=== PATIENT | male | born 1990 | race Caucasian/White ===

== ENCOUNTER 2024-03-11 12:00 | Emergency (ER) | payer MEDICAID ==
[~2024-03-11] VITALS: Ht 188 cm; Wt 75.0 kg
[2024-03-11 12:03] VITALS: BP 145/94; PULSE 89; RESP 18; TEMP 97.9; O2SAT 100
[2024-03-11] MEDS: DOXYCYCLINE 100MG CAPSULE PO SCH (13:32)
[2024-03-11] MEDS: metroNIDAZOLE 500mg tablet PO SCH (13:33)
[2024-03-11] MEDS: CefTRIAXone 500MG IM Kit w/LIDOcaine IM ONE (13:35)
[2024-03-11] MEDS ORDERED: DOXY-460 PO (15:28)
[2024-03-11] MEDS ORDERED: METR-159 PO (15:30)
== END 2024-03-11 14:44 | disposition home or self-care (01) ==
LOC: ER 12:01 → EEVIPCON 12:01 → ER 14:44
DX: T74.21XA Adult sexual abuse, confirmed, initial encounter (principal)
CPT/HCPCS: 99283

== ENCOUNTER 2024-03-13 21:27 | Emergency (ER) | payer MEDICAID ==
[~2024-03-13] VITALS: Ht 188 cm; Wt 81.0 kg
[~2024-03-13 21:27] MED LIST: DOXY-460 PO; METR-159 PO
[2024-03-13] MEDS: acetaminophen 1,000mg/100ml IV 100 ML IV ONE (21:57)
[2024-03-13] MEDS: normal saline 1000ML IV soln IVB PRN (21:58)
[2024-03-13 22:16] LABS: ALANINE AMINOTRANSFERASE 53 U/L (12-78); ALBUMIN 3.6 G/DL (3.4-5.0); ALKALINE PHOSPHATASE 76 IU/L (46-116); ANION GAP 8 (8-16); ASPARTATE AMINO TRANSFERASE 20 U/L (10-37); BILIRUBIN,TOTAL 0.8 MG/DL (0.1-1.0); BLOOD UREA NITROGEN 8 MG/DL (7-18); BUN/CREATININE RATIO 7.3 (10.0-20.0); CALCIUM 8.7 MG/DL (8.5-10.1); CHLORIDE 99 MMOL/L (99-107); CREATININE 1.09 MG/DL (0.60-1.10); GLUCOSE 111 MG/DL (70-104); POTASSIUM 3.9 MMOL/L (3.5-5.1); SODIUM 133 MMOL/L (135-145); TOTAL CARBON DIOXIDE 26.1 MMOL/L (24-32); TOTAL PROTEIN 7.2 G/DL (6.4-8.2); eCRCL 110 ML/MIN; eGFR 78 ML/MIN
[2024-03-13 22:26] LABS: CREATINE KINASE 78 U/L (39-308); FREE T4 (FREE THYROXINE) 0.89 NG/DL (0.73-1.40); MAGNESIUM 1.7 MG/DL (1.5-2.4); THYROID STIMULATING HORMONE 0.18 ulU/ml (0.34-4.50)
[2024-03-13 22:32] LABS: BASOPHILS # (AUTO) 0.1 X10'3 (0-0.2); BASOPHILS % (AUTO) 0.3 % (0-1); EOSINOPHILS % (AUTO) 0 % (0-6); ETHANOL < 10 MG/DL (<10); HEMATOCRIT 40.5 % (42.0-52.0); HEMOGLOBIN 14.4 g/dl (14.0-17.9); LYMPHOCYTES # (AUTO) 1.3 X10'3 (1.1-4.8); LYMPHOCYTES % (AUTO) 6.1 % (21-51); MEAN CORPUSCULAR HEMOGLOBIN 32.7 PG (27.0-31.0); MEAN CORPUSCULAR HGB CONC 35.6 g/dL (33.0-36.5); MEAN CORPUSCULAR VOLUME 91.8 FL (78-98); MEAN PLATELET VOLUME 7.9 FL (7.4-10.4); MONOCYTES # (AUTO) 1.7 X10'3 (0-0.9); MONOCYTES % (AUTO) 7.7 % (2-12); NEUTROPHILS # (AUTO) 18.6 X10'3 (1.8-7.7); NEUTROPHILS % (AUTO) 85.9 % (42-75); PLATELET COUNT 239 X10'3 (140-440); RED BLOOD COUNT 4.42 X10'6 (4.70-6.10); RED CELL DISTRIBUTION WIDTH 12.5 % (11.5-14.5); WHITE BLOOD COUNT 21.7 X10'3 (4.5-11.0)
[2024-03-13 22:37] LABS: STREP A SCREEN NEGATIVE (Neg)
[2024-03-13 23:59] VITALS: TEMP 99.8
[2024-03-14 00:07] LABS: BILIRUBIN,URINE NEGATIVE (Neg); CLARITY,URINE CLEAR (Clear); COLOR,URINE YELLOW (Yellow); GLUCOSE, URINE NEGATIVE (Neg); KETONES,URINE TRACE mg/dl (Neg); LEUKOCYTE ESTERASE ,URINE NEGATIVE (Neg); NITRITES, URINE NEGATIVE (Neg); OCCULT BLOOD,URINE TRACE-INTACT (Neg); PROTEIN,URINE NEGATIVE (Neg); UROBILINOGEN,URINE 0.2 E.U/dL (0.2-1.0)
[2024-03-14 00:14] LABS: UA COLLECTION TYPE CLN CATCH MIDSTREAM
[2024-03-14 00:15] LABS: BACTERIA,URINE NONE SEEN /HPF (Neg); RBC,URINE 0-2 /HPF (0-2); SQUAMOUS EPITHELIAL CELL,UR FEW /LPF (FEW); WBC,URINE NONE SEEN /HPF (0-4)
[2024-03-14] MEDS: LORazepam 2 mg/ml vial IV ONE (00:16)
[2024-03-14] MEDS: CefTRIAXone 2gm/D5W 50ml BAG 50 ML IV ONE (00:18)
[2024-03-14 00:30] LABS: C-REACTIVE PROTEIN 8.66 MG/DL (0.0-0.5)
[2024-03-14 01:06] VITALS: BP 107/65; PULSE 90; RESP 18; O2SAT 99
== END 2024-03-14 01:08 | disposition home or self-care (01) ==
LOC: ER 21:28
DX: F15.959 Other stimulant use, unspecified with stimulant-induced psychotic disorder, unspecified (principal); K62.89 Other specified diseases of anus and rectum; F41.9 Anxiety disorder, unspecified; J02.9 Acute pharyngitis, unspecified; R53.1 Weakness; R00.0 Tachycardia, unspecified; E86.0 Dehydration; D72.829 Elevated white blood cell count, unspecified; E03.9 Hypothyroidism, unspecified; Z20.822 Contact with and (suspected) exposure to COVID-19
CPT/HCPCS: 36415; 80053; 80320; 81001; 82550; 83735; 84145; 84439; 84443; 84484; 85025; 85651; 86140; 87081; 87502; 87503; 87811; 87880; 93005; 96365; 96366; 96367; 99284; J0131; J0696; J7030; 81003